=== PATIENT | female | born 1995 | race Caucasian/White ===

== ENCOUNTER 2017-02-24 09:57 | Emergency (ER) | payer OTHER ==
[2017-02-24 10:09] VITALS: RESP 18
--- NOTE | 2017-02-24 10:43 | EDPHY ---
H & P Time Seen by Provider: 02/24/17 10:32 HPI/ROS: Chief complaint. Influenza HPI. 22-year-old female developed upper respiratory symptoms 5 days ago. She was seen at work and [facility] yesterday and diagnosed with influenza. She was out of the window for treatment. She has had sense of shortness of breath as well as achiness and cough. Difficult time sleeping. Subjective fever. She lives in a house with 3 other women 1 of whom is already also ill. Otherwise no recent foreign travel. No abdominal pain or vomiting. No rash. No history of asthma ROS Constitutional. Fever and achiness Eyes. no problems with vision ENT. no sore throat, no nasal drainage Cardiovascular. no chest pain Respiratory. Shortness of breath and cough Abdominal. no abdominal pain, no nausea/vomiting, no diarrhea . no problems urinating MS. achy Skin. no rash Lymph. no swollen glands Neuro. no headache, no dizziness, no difficulty walking or with speech Past Medical/Surgical History: Anxiety Social History: Single, nonsmoker, no alcohol Smoking Status: Never smoked Physical Exam: General Appearance: Alert well-developed female somewhat ill-appearing vital signs are stable though initial heart rate 102 Eyes: Pupils equal and round no pallor or injection. ENT, pharynx injected. Mucous membranes moist. No exudate Respiratory: There are no retractions, lungs are clear to auscultation. Cardiovascular: Regular rate and rhythm. Gastrointestinal: Abdomen is soft and nontender, no masses, bowel sounds normal. Neurological: Awake and alert, sensory and motor exams grossly normal. Skin: Warm and dry, no rashes. Musculoskeletal: Neck is supple nontender. Extremities symmetrical, full range of motion. Psychiatric: Patient is oriented X 3, there is no agitation. Constitutional: Initial Vital Signs Temperature (C) 36.9 C 02/24/17 10:00 Heart Rate 102 H 02/24/17 10:00 Respiratory Rate 18 02/24/17 10:00 Blood Pressure 120/92 H 02/24/17 10:00 O2 Sat (%) 98 02/24/17 10:00 O2 Delivery Mode Room Air Allergies/Adverse Reactions: No Known Allergies Allergy (Verified 02/24/17 10:06) Home Medications: Medication Instructions Recorded Acne Med 02/24/17 Benzonatate [Tessalon Pearles (RX)] 100 mg PO 02/24/17 Hydrocodone/APAP 5/325 [Lima 1 each PO Q4-6PRN PRN #10 tab 02/24/17 5/325 (*)] Venlafaxine Xr [Effexor Xr 75MG 75 mg PO 02/24/17 (*)] Medical Decision Making - Diagnostics Imaging Results: Chest x-ray reviewed by me shows no evidence for pneumonia. ED Course/Re-evaluation: Re-evaluation 11:35 a.m.. Patient is stable. She and I discussed treatment plan including criteria for return importance of follow-up further evaluation. She expresses understanding and agreement Differential Diagnosis: Influenza with myalgias and sense of shortness of breath. However no evidence for pneumonia. Her vital signs are stable and she is not hypoxic. Departure - Departure Disposition: Home, Routine, Self-Care Clinical Impression: Influenza Condition: Good Instructions: Influenza (ED) Additional Instructions: Drink plenty of fluids and stay hydrated. Ibuprofen 600 mg every 6 hours for discomfort. Hydrocodone in addition for discomfort and cough. Good hand washing and caution with coughing to avoid spread of influenza. Return for worsening symptoms. Recheck in 2 days if not improved Referrals: JOAO,UNKNOWN [Other] - As per Instructions [facility] [Outside] - 2-3 days, if not improved Stand Alone Forms: School Excuse Prescriptions: Hydrocodone/APAP 5/325 [Lima 5/325 (*)] 1 each PO Q4-6PRN PRN #10 tab PRN Reason: Pain, Moderate
[2017-02-24 11:55] VITALS: BP 130/79; PULSE 85; TEMP 98.6; O2SAT 95
== END 2017-02-24 11:55 | disposition home or self-care (01) ==
DX: J11.1 Influenza due to unidentified influenza virus with other respiratory manifestations (principal)